=== PATIENT | male | born 1985 | race Caucasian/White ===

== ENCOUNTER 2019-03-23 02:31 | Emergency (ER) | payer OTHER ==
[~2019-03-23] VITALS: Ht 188 cm; Wt 93.0 kg
[2019-03-23 02:35] VITALS: BP_SYST 153
[2019-03-23 02:59] VITALS: BP_SYST 153
== END 2019-03-23 03:00 | disposition home or self-care (01) ==
LOC: SED 02:31
DX: F45.8 Other somatoform disorders (principal)
CPT/HCPCS: 70360-TC; 99283